=== PATIENT | male | born 2000 | race African-American/Black ===

== ENCOUNTER 2018-10-23 17:14 | Emergency (ER) | payer OTHER, MEDICAID ==
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
[2018-10-23 18:14] VITALS: BP 135/75
== END 2018-10-23 19:10 ==
DX: R51 Headache (principal); S06.0X0D Concussion without loss of consciousness, subsequent encounter; F32.9 Major depressive disorder, single episode, unspecified